=== PATIENT | female | born 1945 ===

== ENCOUNTER → 2020-10-09 | Outpatient (CLI) | payer OTHER ==
[~2020-10-09] MED LIST: ASA81 MG PO; CARDURA8 MG PO; GLUCOTROL10 MG PO; HYDRALAZINE HCL25 MG PO; HYZAAR 100-251 UDTAB PO; PROCARDIA 60MG; SYNTHROID75 MCG PO; [UNRECOGNIZED DRUG - OTHER]; [UNRECOGNIZED DRUG - REMARK]
== END | disposition home or self-care (01) ==
LOC: SONOGRAMA 10:38
PROVIDERS: ATTEND Pathology Anatomic Pathology & Clinical Pathology
DX: D34 Benign neoplasm of thyroid gland (principal); E04.2 Nontoxic multinodular goiter; E07.89 Other specified disorders of thyroid

== ENCOUNTER 2021-04-16 08:36 | Outpatient (CLI) | payer OTHER | END 2021-04-16 08:39 | disposition home or self-care (01) | LOC: SONOGRAMA 08:36 | PROVIDERS: ATTEND Pathology Anatomic Pathology & Clinical Pathology | DX: D34 Benign neoplasm of thyroid gland (principal); E07.89 Other specified disorders of thyroid ==